=== PATIENT | male | born 1985 | race American Indian/Alaskan Native ===

== ENCOUNTER 2017-06-05 23:40 | Emergency (ER) | payer SELFPAY ==
[2017-06-05 23:57] VITALS: BP 132/86
--- NOTE | 2017-06-06 00:56 | EDM.PDOC ---
ED HPI GENERAL MEDICAL PROBLEM - General Chief Complaint: Lower Extremity Injury/Pain Stated Complaint: KNEE [id number] Time Seen by Provider: 06/06/17 00:05 Source of Information: Reports: Patient History Limitations: Reports: No Limitations - History of Present Illness INITIAL COMMENTS - FREE TEXT/NARRATIVE: c/o pain to left knee since March. Patient notes he was seen by [facility], told he would need referral for MRI. [facility] unable to make referral as from another [place] [facility]. Notes has used knee brace from [employer], not noted improvement. Has not taken any tylenol or ibuprofen. Denies new injury Quality: Reports: Throbbing Worsens with: Reports: Movement Context: Reports: Activity Left Knee Pain Score (Numeric/FACES): 7 - Related Data Allergies Allergy/AdvReac Type Severity Reaction Status Date / Time No Known Allergies Allergy Verified 06/05/17 23:49 Home Meds: Home Meds . [Unable to Verify Home Med List] 06/05/17 [History] Past Medical History - Past Health History Medical/Surgical History: Denies Medical/Surgical History Musculoskeletal History: Reports: Other (See Below) Other Musculoskeletal History: L) knee injury in March Psychiatric History: Reports: Anxiety, Depression, PTSD Social & Family History - Tobacco Use Smoking Status *Q: Current Every Day Smoker Years of Tobacco use: 13 Packs/Tins Daily: 0.5 Used Tobacco, but Quit: No - Caffeine Use Caffeine Use: Reports: Soda - Recreational Drug Use Recreational Drug Use: No Review of Systems - Review of Systems Review Of Systems: ROS reveals no pertinent complaints other than HPI. ED EXAM, GENERAL - Physical Exam Exam: See Below Exam Limited By: No Limitations General Appearance: Alert, No Apparent Distress Eye Exam: Bilateral Eye: EOMI Ears: Normal External Exam Nose: Normal Inspection Respiratory/Chest: No Respiratory Distress, Lungs Clear Cardiovascular: Normal Peripheral Pulses, Regular Rate, Rhythm Extremities: Normal Range of Motion, Other (mild swelling left lateral knee, mild increase pain with lateral stress, no laxity). No: Redness Neurological: Alert, Oriented Psychiatric: Normal Affect Skin Exam: Warm, Dry, Intact, Normal Color Course - Vital Signs Last Recorded V/S: Last Vital Signs Temp 98.8 F 06/05/17 23:56 Pulse 76 06/05/17 23:56 Resp 20 06/05/17 23:56 BP 132/86 06/05/17 23:56 Pulse Ox 100 06/05/17 23:56 Departure - Departure Time of Disposition: 00:53 Disposition: Home, Self-Care 01 Condition: Good Clinical Impression: Left lateral knee pain - Discharge Information Instructions: Knee Sprain, [id number] Referrals: PCP,None [Primary Care Provider] - Forms: ED Department Discharge Additional Instructions: alternate acetaminophen 650mg with ibuprofen 600mg every 4 hours as needed for knee pain follow up in clinic if continued pain utilize knee brace or yoselyn wrap for support
== END 2017-06-06 01:02 | disposition home or self-care (01) ==
LOC: DL.ED 23:40
DX: M25.562 Pain in left knee (principal); F17.210 Nicotine dependence, cigarettes, uncomplicated; F32.9 Major depressive disorder, single episode, unspecified
CPT/HCPCS: 99283